=== PATIENT | female | born 2000 | race Caucasian/White ===

== ENCOUNTER 2024-04-23 15:25 | Emergency (ER) | payer BC ==
[~2024-04-23] VITALS: Ht 175.3 cm; Wt 65.0 kg
[2024-04-23 15:29] VITALS: BP 144/97; PULSE 78; TEMP 98.2; O2SAT 98
[2024-04-23] MEDS: orphenadrine citrate 60mg/2ml inj. IM ONE (16:12)
[2024-04-23] MEDS: ketorolac trometh 15mg/ml vial 15 MG/ML ML IM ONE (16:12)
[2024-04-23] MEDS: oxyCODONE/APAP 10/325mg tablet PO ONE ×2 (17:01→18:10)
[2024-04-23] MEDS ORDERED: OXYC-138 PO (17:17)
[2024-04-23] MEDS ORDERED: CYCL-1 PO (17:17)
[2024-04-23 18:10] VITALS: RESP 18
[2024-04-23] MEDS: diazepam 5mg tablet PO ONE (18:10)
== END 2024-04-23 21:57 | disposition home or self-care (01) ==
LOC: ER 15:26
DX: S39.012A Strain of muscle, fascia and tendon of lower back, initial encounter (principal); Z79.899 Other long term (current) drug therapy; X58.XXXA Exposure to other specified factors, initial encounter; Y93.89 Activity, other specified; Y92.89 Other specified places as the place of occurrence of the external cause; Y99.8 Other external cause status
CPT/HCPCS: 72100; 72148; 96372; 99285; J1885; J2360